=== PATIENT | female | born 1960 | race Caucasian/White ===

== ENCOUNTER 2020-02-28 17:57 | Emergency (ER) | payer OTHER ==
[~2020-02-28] VITALS: Ht 154.9 cm; Wt 56.2 kg
[2020-02-28] MEDS ORDERED: IV NS 0.9% 1,000 ML BAG IV ONE (18:30)
[2020-02-28] MEDS ORDERED: ONDANSETRON HCL/PF 4 MG/2 ML VIAL IVP ONE (18:30)
[2020-02-28] MEDS ORDERED: ONDANSETRON HCL/PF 4 MG/2 ML VIAL ONE (19:02)
--- NOTE | 2020-02-28 19:27 | NUR ---
BIBS TO ER BED 7. AAOX4. ANXIOUS. NOT IN RESP DISTRESS. AMBULATORY. CAME IN FOR A L ARM PAIN WHICH STARTED LAST NIGHT. 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 PAIN RATES HER PAIN 8/10. SHE REPORTS THAT SHE IS NAUSEOUS. WAS AT BEDSIDE FOR EVAL. ORDERS RECEIVED, NOTED AND CARRIED OUT. IV LINE OBTAINED ON R WRIST 22G. WILL CONTINUE TO MONITOR PT
--- NOTE | 2020-02-28 20:34 | NUR ---
Patient discharged to home in stable condition. Written and verbal after care instructions given. Patient verbalizes understanding of instruction.IV removed. Catheter intact and site benign. Pressure and 4x4 applied to site. No bleeding noted. Pt ambulatory with a steady gait
[2020-02-28 20:37] VITALS: BP 156/76
== END 2020-02-28 20:37 | disposition home or self-care (01) ==
LOC: ER 17:59
DX: R20.2 Paresthesia of skin (principal); I10 Essential (primary) hypertension; E11.9 Type 2 diabetes mellitus without complications; Z98.890 Other specified postprocedural states
CPT/HCPCS: 96374; 99283; J2405; J7030